=== PATIENT | female | born 1985 | race Hispanic/Latino ===

== ENCOUNTER 2018-10-05 12:03 | Emergency (ER) | payer OTHER ==
--- NOTE | 2018-10-05 13:48 | ER ---
Nurse's Notes [facility] Name: Nely Chávez Age: 33 yrs Sex: Female : 1985 Arrival Date: 10/05/2018 Time: 12:08 Bed DIS2 Private MD: None, None Diagnosis: Nasal congestion Presentation: 10/05 12:17 Presenting complaint: Patient states: nasal congestion and cough since Friday. aa5 Transition of care: patient was not received from another setting of care. Onset of symptoms was September 30, 2018. Risk Assessment: Do you want to hurt yourself or someone else? Patient reports no desire to harm self or others. Initial Sepsis Screen: Does the patient meet any 2 criteria? No. Patient's initial sepsis screen is negative. Does the patient have a suspected source of infection? No. Patient's initial sepsis screen is negative. Care prior to arrival: None. 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 - Social history:: Smoking status: Patient/guardian denies using tobacco. - Ebola Screening: : No symptoms or risks identified at this time. Screenin:20 Abuse screen: Denies threats or abuse. Nutritional screening: No deficits noted. aa5 Tuberculosis screening: No symptoms or risk factors identified. Fall Risk None identified. Assessment: 12:20 General: Appears comfortable, Behavior is calm, cooperative. Pain: Complains of pain in aa5 head Pain currently is 7 out of 10 on a pain scale. Quality of pain is described as aching, Pain began 2-3 days ago. Is continuous. Neuro: Level of Consciousness is awake, alert, obeys commands, Oriented to person, place, time, situation. Cardiovascular: Heart tones S1 S2 present Rhythm is regular. Respiratory: Airway is patent Respiratory effort is even, unlabored, Respiratory pattern is regular, symmetrical, Breath sounds are clear bilaterally. GI: No signs and/or symptoms were reported involving the gastrointestinal system. : No signs and/or symptoms were reported regarding the genitourinary system. EENT: Reports nasal congestion Denies sore throat . Derm: Skin is pink, warm \T\ dry. Musculoskeletal: Range of motion: intact in all extremities. 14:00 Reassessment: Patient is alert, oriented x 3, equal unlabored respirations, skin aa5 warm/dry/pink. Vital Signs: 12:16 BP 117 / 77; Pulse 72; Resp 18 S; Temp 97.5(TE); Pulse Ox 98% on R/A; Weight 104.33 kg aa5 (R); Height 5 ft. 6 in. (167.64 cm) (R); Pain 7/10; 12:16 Body Mass Index 37.12 (104.33 kg, 167.64 cm) aa5 ED Course: 12:08 Patient arrived in ED. mr 12:08 None, None is Private Physician. mr 12:16 Arm band placed on. aa5 12:16 Patient has correct armband on for positive identification. aa5 12:18 Triage completed. aa5 12:19 June Minor FNP-C [facility]. kb 12:19 Andreas Rivas MD is Attending Physician. kb 13:02 Roya Saunders, MARU is Primary Nurse. aa5 13:07 Flu Sent. ss 14:00 No provider procedures requiring assistance completed. Patient did not have IV access aa5 during this emergency room visit. Administered Medications: No medications were administered Outcome: 13:48 Discharge ordered by MD. kb 14:00 Discharged to home ambulatory, with family. aa5 14:00 Condition: stable 14:00 Discharge instructions given to patient, Instructed on discharge instructions, follow up and referral plans. Demonstrated understanding of instructions, follow-up care. 14:03 Patient left the ED. aa5 Signatures: June Minor FNP-C FNP-Amadou Cristy Mtz mr Roya Saunders, RN RN aa5 Yoli Lockhart RN RN
--- NOTE | 2018-10-05 13:48 | EDPHYS ---
Physician Documentation [facility] Name: Nely Chávez Age: 33 yrs Sex: Female : 1985 Arrival Date: 10/05/2018 Time: 12:08 Bed DIS2 Private MD: None, None ED Physician Andreas Rivas HPI: 10/05 13:46 This 33 yrs old Female presents to ER via Ambulatory with complaints of Flu kb Symptoms. 13:46 The patient or guardian reports cough, that is intermittent, described as moderate, kb with no sputum. Onset: The symptoms/episode began/occurred 6 day(s) ago. Severity of symptoms: At their worst the symptoms were moderate, in the emergency department the symptoms are unchanged. Modifying factors: The symptoms are alleviated by nothing, the symptoms are aggravated by nothing. Associated signs and symptoms: Pertinent positives: rhinorrhea, Pertinent negatives: chest pain, diarrhea, ear ache, fever, nausea, sore throat, vomiting. The patient has not experienced similar symptoms in the past. The patient has not recently seen a physician. Pt states she has had cough and congestion since Friday. Came today because it hasn't gone away yet and she wanted to make sure it wasn't the flu. 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 - Social history:: Smoking status: Patient/guardian denies using tobacco. - Ebola Screening: : No symptoms or risks identified at this time. ROS: 13:39 Constitutional: Negative for fever, chills, and weight loss, Neck: Negative for injury, kb pain, and swelling, Cardiovascular: Negative for chest pain, palpitations, and edema, Abdomen/GI: Negative for abdominal pain, nausea, vomiting, diarrhea, and constipation, Back: Negative for injury and pain, MS/Extremity: Negative for injury and deformity, Skin: Negative for injury, rash, and discoloration, Neuro: Negative for headache, weakness, numbness, tingling, and seizure. 13:39 ENT: Positive for rhinorrhea, sinus congestion, sore throat. 13:39 Respiratory: Positive for cough, with no reported sputum, Negative for dyspnea on exertion, hemoptysis, orthopnea, pleurisy, shortness of breath, sputum production, wheezing. Exam: 13:46 Constitutional: This is a well developed, well nourished patient who is awake, alert, kb and in no acute distress. Head/Face: Normocephalic, atraumatic. ENT: Nares patent. No nasal discharge, no septal abnormalities noted. Tympanic membranes are normal and external auditory canals are clear. Oropharynx with no redness, swelling, or masses, exudates, or evidence of obstruction, uvula midline. Mucous membranes moist. Neck: Trachea midline, no thyromegaly or masses palpated, and no cervical lymphadenopathy. Supple, full range of motion without nuchal rigidity, or vertebral point tenderness. No Meningismus. Chest/axilla: Normal chest wall appearance and motion. Nontender with no deformity. No lesions are appreciated. Cardiovascular: Regular rate and rhythm with a normal S1 and S2. No gallops, murmurs, or rubs. Normal PMI, no JVD. No pulse deficits. Respiratory: Lungs have equal breath sounds bilaterally, clear to auscultation and percussion. No rales, rhonchi or wheezes noted. No increased work of breathing, no retractions or nasal flaring. Abdomen/GI: Soft, non-tender, with normal bowel sounds. No distension or tympany. No guarding or rebound. No evidence of tenderness throughout. Skin: Warm, dry with normal turgor. Normal color with no rashes, no lesions, and no evidence of cellulitis. MS/ Extremity: Pulses equal, no cyanosis. Neurovascular intact. Full, normal range of motion. Neuro: Awake and alert, GCS 15, oriented to person, place, time, and situation. Cranial nerves II-XII grossly intact. Motor strength 5/5 in all extremities. Sensory grossly intact. Cerebellar exam normal. Normal gait. Vital Signs: 12:16 BP 117 / 77; Pulse 72; Resp 18 S; Temp 97.5(TE); Pulse Ox 98% on R/A; Weight 104.33 kg aa5 (R); Height 5 ft. 6 in. (167.64 cm) (R); Pain 7/10; 12:16 Body Mass Index 37.12 (104.33 kg, 167.64 cm) aa5 MDM: 12:19 Patient medically screened. kb 13:38 Data reviewed: vital signs, nurses notes. Data interpreted: Pulse oximetry: on room air kb is 98 %. Interpretation: normal. 13:44 Counseling: I had a detailed discussion with the patient and/or guardian regarding: the kb historical points, exam findings, and any diagnostic results supporting the discharge/admit diagnosis, lab results, the need for outpatient follow up, a family practitioner, to return to the emergency department if symptoms worsen or persist or if there are any questions or concerns that arise at home. 10/05 12:24 Order name: Flu; Complete Time: 13:32 kb Administered Medications: No medications were administered Disposition: 15:02 Co-signature as Attending Physician, Andreas Rivas MD. ma2 Disposition: 10/05/18 13:48 Discharged to Home. Impression: Nasal congestion. - Condition is Stable. - Discharge Instructions: Viral Respiratory Infection, [id number]. - Medication Reconciliation Form, Thank You Letter, Antibiotic Education, Prescription Opioid Use, Work release form form. - Follow up: Emergency Department; When: As needed; Reason: Worsening of condition. Follow up: Private Physician; When: 2 - 3 days; Reason: Recheck today's complaints, Continuance of care, Re-evaluation by your physician. Signatures: Dispatcher [employer] [facility] June Minor, Roya Zepeda RN RN aa5 Andreas Rivas MD MD ma2 Corrections: (The following items were deleted from the chart) 14:03 13:48 10/05/2018 13:48 Discharged to Home. Impression: Nasal congestion. Condition is aa5 Stable. Forms are Medication Reconciliation Form, Thank You Letter, Antibiotic Education, Prescription Opioid Use. Follow up: Emergency Department; When: As needed; Reason: Worsening of condition. Follow up: Private Physician; When: 2 - 3 days; Reason: Recheck today's complaints, Continuance of care, Re-evaluation by your physician. kb
== END 2018-10-05 14:03 | disposition home or self-care (01) ==
LOC: ER 12:03
DX: R05 Cough (principal); R09.81 Nasal congestion
CPT/HCPCS: 87804; 99283